=== PATIENT | female | born 1990 | race Caucasian/White ===

== ENCOUNTER 2020-12-05 07:23 | Emergency (ER) | payer BC ==
[~2020-12-05] VITALS: Ht 154.9 cm; Wt 64.9 kg
[2020-12-05 07:27] VITALS: BP_SYST 126
--- NOTE | 2020-12-05 07:28 | NUR ---
PT COMES TO ER WITH C/O RT LOWER QUAD PAIN, INTERMITTENT X 4 DAYS, NOW RADIATING TO RT THIGH AREA. PT ALSO CONFIRMS THAT SHE IS 17 WEEKS , P-1, G-0. DENIES ANY VAGINAL BLEEDING. 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 PATTIE FOR ER MD [email or web address].
--- NOTE | 2020-12-05 07:32 | NUR ---
AMBULATED TO BED 6
--- NOTE | 2020-12-05 07:42 | NUR ---
DR LEWIS IN ROOM FOR EXAM.
--- NOTE | 2020-12-05 08:00 | NUR ---
LAB AT BEDSIDE FOR BLOOD DRAW
[2020-12-05 08:11] LABS: BASOPHILS % (AUTO) 0.2 % (0.0-2.0); EOSINOPHILS # (AUTO) 0.1 K/uL (0.0-0.4); EOSINOPHILS % (AUTO) 0.9 % (0.0-4.0); HEMATOCRIT 33.2 % (36-48); HEMOGLOBIN 11.7 g/dL (12.0-16.0); LYMPHOCYTES # (AUTO) 0.8 K/uL (1.0-5.5); LYMPHOCYTES % (AUTO) 11.2 % (20.5-51.5); MEAN CORPUSCULAR HEMOGLOBIN 34 pg (27-31); MEAN CORPUSCULAR HGB CONC 35 % (32-36); MEAN CORPUSCULAR VOLUME 98 fL (79.0-98.0); MONOCYTES # (AUTO) 0.4 K/uL (0.0-1.0); MONOCYTES % (AUTO) 5.2 % (1.7-9.3); NEUTROPHILS # (AUTO) 5.7 K/uL (1.8-7.7); NEUTROPHILS % (AUTO) 82.5 % (40.0-70.0); PLATELET COUNT (AUTO) 313 K/uL (130-430); RED CELL DISTRIBUTION WIDTH 13.6 % (9.0-15.0); WHITE BLOOD COUNT (AUTO) 6.9 K/uL (4.8-10.8)
[2020-12-05 08:23] LABS: ANION GAP 11 (5-15); CALCIUM 8.5 mg/dL (8.4-11.0); CHLORIDE 102 mmol/L (98-107); CREATININE 0.54 mg/dL (0.55-1.30); GLUCOSE 103 mg/dL (70-99); POTASSIUM 3.6 mmol/L (3.5-5.1); SODIUM SERUM 136 mmol/L (136-145); UREA NITROGEN, BLOOD 7 mg/dL (8-21)
[2020-12-05 08:25] LABS: PROTHROMBIN TIME 8.9 SECS (9.5-12.5)
[2020-12-05 08:27] LABS: ALANINE AMINOTRANSFERASE 23 U/L (12-78); ALBUMIN 2.9 g/dL (3.4-4.8); AMYLASE 46 U/L (0-100); ASPARTATE AMINOTRANSFERASE 15 U/L (10-37); C-REACTIVE PROTEIN QUANT < 0.2 mg/dL (0-0.5); LIPASE 96 U/L (73-393); TOTAL BILIRUBIN 0.3 mg/dL (0.0-1.0)
[2020-12-05 08:28] LABS: GFR AFRICAN AMERICAN 168 mL/min (>90)
[2020-12-05 08:35] LABS: INR 0.8 (0.8-1.2)
[2020-12-05 09:05] LABS: BILIRUBIN,URINE NEGATIVE (NEGATIVE); BLOOD, URINE NEGATIVE (NEGATIVE); CLARITY/URINE CLEAR (CLEAR); COLOR,URINE YELLOW (YELLOW); GLUCOSE,URINE NEGATIVE (NEGATIVE); KETONES,URINE NEGATIVE (NEGATIVE); LEUKOCYTE ESTERASE ,URINE NEGATIVE (NEGATIVE); NITRITE, URINE NEGATIVE (NEGATIVE); PH,URINE 7.5 (5.0-8.0); PROTEIN URINE NEGATIVE (NEGATIVE); UROBILINOGEN,URINE 0.2 (0.2-1.0)
[2020-12-05 09:28] VITALS: BP_SYST 129
--- NOTE | 2020-12-05 09:29 | NUR ---
DC WITH [facility], PT AWARE TO F/U WITH PCP IN 1-2 DAYS AND TO RETURN IF SYSMPTOMS PERIST OR WORSEN. VSS. IN NAD. RESP EVEN AND UN LABORED, ON RA @99%. NO CRAMPING AT THIS TIME.
== END 2020-12-05 10:00 | disposition home or self-care (01) ==
LOC: SED 07:23
DX: O26.892 Other specified pregnancy related conditions, second trimester (principal); R10.32 Left lower quadrant pain; Z3A.18 18 weeks gestation of pregnancy
CPT/HCPCS: 36415; 76805-TC; 80053; 81003; 81025; 82150; 83605; 83690; 85025; 85610-TC; 85730-TC; 86140; 99284

== ENCOUNTER 2021-04-19 05:45 | Inpatient (IN) | payer BC ==
[~2021-04-19] VITALS: Ht 154.9 cm; Wt 75.3 kg
[2021-04-19] MEDS ORDERED: CEFAZOLIN 1 GM IVPB PREMIX 50 ML IV ONE (06:45)
[2021-04-19] MEDS ORDERED: CEFAZOLIN 2 GM IVPB PREMIX 50 ML IV ONE (06:45)
[2021-04-19] MEDS ORDERED: CITRIC ACID/SODIUM CITRATE 30 ML UDC PO ONE (06:45)
[2021-04-19] MEDS ORDERED: METOCLOPRAMIDE HCL 10 MG/2 ML VIAL IVP ONE ×2 (06:45→09:10)
[2021-04-19] MEDS ORDERED: LR 1,000 ML IV ONE (06:45)
[2021-04-19 08:10] LABS: BILIRUBIN,URINE NEGATIVE (NEGATIVE); BLOOD, URINE NEGATIVE (NEGATIVE); COLOR,URINE YELLOW (YELLOW); GLUCOSE,URINE NEGATIVE (NEGATIVE); KETONES,URINE NEGATIVE (NEGATIVE); LEUKOCYTE ESTERASE ,URINE NEGATIVE (NEGATIVE); NITRITE, URINE NEGATIVE (NEGATIVE); PH,URINE 7.5 (5.0-8.0); PROTEIN URINE NEGATIVE (NEGATIVE); UROBILINOGEN,URINE 0.2 (0.2-1.0)
[2021-04-19 08:24] LABS: CLARITY/URINE CLEAR (CLEAR)
[2021-04-19 08:44] LABS: BASOPHILS % (AUTO) 0.1 % (0.0-2.0); EOSINOPHILS % (AUTO) 0.4 % (0.0-4.0); HEMATOCRIT 36.9 % (36-48); HEMOGLOBIN 12.4 g/dL (12.0-16.0); LYMPHOCYTES # (AUTO) 0.9 K/uL (1.0-5.5); MEAN CORPUSCULAR HEMOGLOBIN 33 pg (27-31); MEAN CORPUSCULAR HGB CONC 34 % (32-36); MEAN CORPUSCULAR VOLUME 97 fL (79.0-98.0); MONOCYTES # (AUTO) 0.4 K/uL (0.0-1.0); MONOCYTES % (AUTO) 6.7 % (1.7-9.3); NEUTROPHILS # (AUTO) 5.3 K/uL (1.8-7.7); NEUTROPHILS % (AUTO) 79.8 % (40.0-70.0); PLATELET COUNT (AUTO) 268 K/uL (130-430); RED BLOOD CELL COUNT(AUTO) 3.81 MIL/uL (4.2-6.2); RED CELL DISTRIBUTION WIDTH 14.2 % (9.0-15.0); WHITE BLOOD COUNT (AUTO) 6.6 K/uL (4.8-10.8)
[2021-04-19 09:06] LABS: PROTHROMBIN TIME 8.9 SECS (9.5-12.5)
[2021-04-19] MEDS ORDERED: LR 1,000 ML IV.SOLN IV ONE (09:10)
[2021-04-19] MEDS ORDERED: MORPHINE SULFATE 10 MG/ML VIAL IVP ONE (09:10)
[2021-04-19] MEDS ORDERED: NS IRRIG SOLN 1000 ML IR ONE (09:10)
[2021-04-19] MEDS ORDERED: TRANEXAMIC ACID 1,000 MG/10 ML VIAL IV ONE (09:10)
[2021-04-19] MEDS ORDERED: fentaNYL CITRATE 250 MCG/5 ML AMP IV ONE (09:10)
[2021-04-19] MEDS ORDERED: PHENYLEPHRINE HCL 10 MG/ML VIAL (NEOSYNEPHRINE) IV ONE (09:10)
[2021-04-19] MEDS ORDERED: MIDAZOLAM HCL 5 MG/5 ML VIAL IVP ONE (09:10)
[2021-04-19] MEDS ORDERED: ONDANSETRON HCL 4 MG/2 ML VIAL IVP ONE (09:10)
[2021-04-19 09:14] LABS: CALCIUM 8.6 mg/dL (8.4-11.0); CREATININE 0.39 mg/dL (0.55-1.30); POTASSIUM 3.8 mmol/L (3.5-5.1)
[2021-04-19 09:17] LABS: INR 0.8 (0.8-1.2)
[2021-04-19 09:22] LABS: ALBUMIN 2.7 g/dL (3.4-4.8); TOTAL BILIRUBIN 0.4 mg/dL (0.0-1.0)
[2021-04-19] MEDS ORDERED: METHYLERGONOVINE MALEATE 0.2 MG/ML AMP ONE (09:57)
[2021-04-19] MEDS ORDERED: NALOXONE HCL 0.4 MG/ML AMP (NARCAN) IVP PRN ×4 (10:30→10:45)
[2021-04-19] MEDS ORDERED: DIPH-TET-PERTUS Vaccine 0.5 ML VIAL (ADACEL) I.M. PRN (10:30)
[2021-04-19] MEDS ORDERED: LANOLIN 7 GM OINT. TP PRN (10:30)
[2021-04-19] MEDS ORDERED: RHO(D) IMMUNE GLOBULIN/MALTOSE 1500 UNITS/1.3 ML (WINHRO) IM PRN (10:30)
[2021-04-19] MEDS ORDERED: OXYCODONE/ACETAMINOPHEN 5-325 TABLET PO PRN (10:30)
[2021-04-19] MEDS ORDERED: LR 1,000 ML IV SCH (10:30)
[2021-04-19] MEDS ORDERED: BISACODYL 10 MG/SUPPOSITORY RC PRN (10:30)
[2021-04-19] MEDS ORDERED: HYDROcodone/ACETAMIN 5-325 MG TAB (NORCO/ VICODIN) PO PRN (10:30)
[2021-04-19] MEDS ORDERED: DIPHENHYDRAMINE INJ 50 MG/ML VIAL IM PRN (10:30)
[2021-04-19] MEDS ORDERED: ANUSOL 1 EA SUPP.RECT (PREPARATION H) RC PRN (10:30)
[2021-04-19] MEDS ORDERED: TEMAZEPAM 15 MG CAPSULE PO PRN (10:30)
[2021-04-19] MEDS ORDERED: KETOROLAC TROMETHAMINE 60 MG/2 ML VIAL IM PRN (10:30)
[2021-04-19] MEDS ORDERED: OXYCODONE/ACETAMINOPHEN *10*mg/325 mg TABLET PO PRN (10:30)
[2021-04-19] MEDS ORDERED: MEASLES,MUMPS&RUBELLA VACC/PF 12500 UNIT/0.5 ML VIAL SUBQ PRN (10:30)
[2021-04-19 10:31] VITALS: BP_SYST 111
[2021-04-19] MEDS ORDERED: HYDROmorphone 1 MG/ML INJ. CARTRIDGE ONE (10:43)
[2021-04-19] MEDS ORDERED: HYDROmorphone 1 MG/ML INJ. CARTRIDGE IVP PRN ×2 (10:45)
[2021-04-19] MEDS ORDERED: HYDROmorphone 2 MG/ML VIAL IVP PRN (10:45)
[2021-04-19] MEDS: CEFAZOLIN 1 GM IVPB PREMIX 50 ML IV SCH ×2 (12:00→19:12)
[2021-04-19] MEDS: ONDANSETRON HCL 4 MG/2 ML VIAL IVP PRN ×2 (15:04→19:12)
[2021-04-19] MEDS: OXYTOCIN/0.9 % SODIUM CHLORIDE 1,000 ML IV SCH (17:00)
[2021-04-19] MEDS: KETOROLAC TROMETHAMINE 30 MG VIAL IVP SCH (19:12)
[2021-04-19] MEDS: DOCUSATE SODIUM 100 MG CAPSULE PO SCH (21:57)
[2021-04-19] MEDS: SENNOSIDES/DOCUSATE SODIUM 1 TAB TABLET(SENOKOT-S) PO SCH (21:57)
[2021-04-20] MEDS: CEFAZOLIN 1 GM IVPB PREMIX 50 ML IV SCH (01:00)
[2021-04-20] MEDS: KETOROLAC TROMETHAMINE 30 MG VIAL IVP SCH ×2 (01:15→06:57)
[2021-04-20] MEDS: OXYTOCIN/0.9 % SODIUM CHLORIDE 1,000 ML IV SCH (03:16)
[2021-04-20 06:51] LABS: BASOPHILS % (AUTO) 0.1 % (0.0-2.0); HEMATOCRIT 31.9 % (36-48); HEMOGLOBIN 10.8 g/dL (12.0-16.0); LYMPHOCYTES % (AUTO) 9.2 % (20.5-51.5); MEAN CORPUSCULAR HEMOGLOBIN 33 pg (27-31); MEAN CORPUSCULAR HGB CONC 34 % (32-36); MEAN CORPUSCULAR VOLUME 98 fL (79.0-98.0); MONOCYTES # (AUTO) 0.8 K/uL (0.0-1.0); MONOCYTES % (AUTO) 7.2 % (1.7-9.3); NEUTROPHILS # (AUTO) 8.8 K/uL (1.8-7.7); NEUTROPHILS % (AUTO) 83.5 % (40.0-70.0); PLATELET COUNT (AUTO) 221 K/uL (130-430); RED BLOOD CELL COUNT(AUTO) 3.27 MIL/uL (4.2-6.2); RED CELL DISTRIBUTION WIDTH 14.5 % (9.0-15.0); WHITE BLOOD COUNT (AUTO) 10.5 K/uL (4.8-10.8)
[2021-04-20] MEDS: DOCUSATE SODIUM 100 MG CAPSULE PO SCH ×2 (09:52→20:52)
[2021-04-20] MEDS: IBUPROFEN 600 MG TABLET PO SCH ×2 (12:12→17:52)
[2021-04-20] MEDS: SIMETHICONE 80 MG TAB.CHEW PO PRN ×2 (12:13→17:02)
[2021-04-20] MEDS: SENNOSIDES/DOCUSATE SODIUM 1 TAB TABLET(SENOKOT-S) PO SCH (20:52)
[2021-04-21] MEDS: IBUPROFEN 600 MG TABLET PO SCH ×2 (00:59→05:50)
[2021-04-21] MEDS: SIMETHICONE 80 MG TAB.CHEW PO PRN (08:12)
== END 2021-04-21 11:15 | disposition home or self-care (01) | DRG 788 ==
LOC: SPU 05:45
PROVIDERS: ADMIT Specialist; ATTEND Specialist
PROC: 10D00Z1 Extraction of Products of Conception, Low, Open Approach (ICD-10-PCS; principal; 2021-04-19 08:45)
DX: O24.429 Gestational diabetes mellitus in childbirth, unspecified control (principal); O34.211 Maternal care for low transverse scar from previous cesarean delivery; O77.0 Labor and delivery complicated by meconium in amniotic fluid; O36.63X0 Maternal care for excessive fetal growth, third trimester, not applicable or unspecified; Z20.822 Contact with and (suspected) exposure to COVID-19; Z3A.39 39 weeks gestation of pregnancy; Z37.0 Single live birth
CPT/HCPCS: 36415; 80053; 81003; 82962; 85025; 85610-TC; 85730-TC; 86592; 86886; 86900; 86901; 88305; 94760; J0690; J1170; J1885; J2210; J2250; J2270; J2370; J2405; J2590; J2765; J3010; J3490; J7120